=== PATIENT | female | born 1985 | race Caucasian/White ===

== ENCOUNTER 2018-09-13 23:00 | Inpatient (IN) | payer BC ==
[2018-09-14] MEDS ORDERED: ZOLPIDEM TARTRATE 5 MG TAB PO PRN (02:10)
[2018-09-14] MEDS ORDERED: TERBUTALINE SULFATE 1 MG/ML VIAL ONE (07:11)
[2018-09-14] MEDS ORDERED: LIDOCAINE 1% 300 MG/30 ML SDV ONE (07:11)
[2018-09-14] MEDS ORDERED: MISOPROSTOL 200 MCG TAB ONE (07:11)
[2018-09-14] MEDS ORDERED: OXYTOCIN 10 UNIT/ML VIAL ONE (07:11)
[2018-09-14] MEDS ORDERED: AMMONIA AROMATIC 1 EACH AMP IH ONE (07:11)
[2018-09-14] MEDS ORDERED: OLIVE OIL 118 ML BTL ONE (07:11)
[2018-09-14] MEDS ORDERED: EPSOM SALT 454 GM TP PRN (07:14)
[2018-09-14] MEDS ORDERED: IBUPROFEN 600 MG TAB PO PRN (07:14)
[2018-09-14] MEDS ORDERED: TERBUTALINE SULFATE 1 MG/ML VIAL IV PRN (07:14)
[2018-09-14] MEDS ORDERED: OXYTOCIN/RINGERS LACTATE 1,000 ML IV PRN (07:14)
[2018-09-14] MEDS ORDERED: MISOPROSTOL 200 MCG TAB PR PRN (07:14)
[2018-09-14] MEDS ORDERED: LR 1,000 ML IV PRN (07:14)
[2018-09-14] MEDS ORDERED: LIDOCAINE 1% 300 MG/30 ML SDV SC PRN (07:14)
[2018-09-14] MEDS ORDERED: OLIVE OIL 118 ML BTL MISC PRN (07:14)
[2018-09-14] MEDS ORDERED: OXYTOCIN/RINGERS LACTATE 30 UNIT/500 ML BAG IV ONE (09:01)
[2018-09-14 09:29] LABS: PLATELET COUNT 197 10^3/uL (150-400)
--- NOTE | 2018-09-14 09:42 | PDGENHP ---
History and Physical - Chief Complaint contractions - History of Present Illness 33 at 40w1d today, came in last night with contractions, no cervical change. Was given Ambien per Dr. Arthur, and per RN report - slept intermittently and did not call I assumed care at 0700 and was called at 0710 and told the patient was 9.5 cm dilated. I arrived on the floor by 0730, pt had SROM with clear fluid at 0731, and I found the patient to be completely dilated at 0748. Pushing commenced, and I was in the room with the patient until now, 0930. Straight cath for 150ml around 0845. care uncomplicated. labs: Innatal neg A pos Ab scr neg RPR NR Rub NON imm HBSG neg HIV neg std panel neg varicella imm 1 hr GTT 149, 3 hr 77/126/99/69 GBS neg History Information - Allergies/Home Medication List Allergies/Adverse Reactions: No Known Allergies Allergy (Verified 09/13/18 23:23) I have personally reviewed and updated: family history, medical history, social history, surgical history - Past Medical History no pertinent PMH - Surgical History Additional surgical history: tonsillectomy. wisdom teeth - Family History Additional family history: F - a fib. MGM - DM, thyroid dz, Crohn's disease. m , sis - depression. M - breast ca at 34 - Social History Smoking Status: Never smoked Alcohol Use: None Drug Use: None Review of Systems Review of Systems: ROS: 10pt was reviewed & negative except for what was stated in HPI & below Physical Exam Physical Exam: VSS afeb36.4 77 119/76 gen - pleasant, NAD CV -RRR abd - gravid, soft, NT when not cholo. ext - no edema, calves NT SVE - complete/ +2 when started pushing, descends to +3 with pushing after 1:45 of pushing FHR 150s, variable decels with pushing, mod variability in between toco - q 3-5 min Constitutional: no apparent distress Eyes: PERRL, EOMI Ears, Nose, Mouth, Throat: moist mucous membranes, hearing normal, ears appear normal Cardiovascular: regular rate and rhythym Genitourinary: no bladder fullness Skin: warm, normal color Musculoskeletal: full muscle strength Neurologic: AAOx3 Psychiatric: interacting appropriately Lab Data & Imaging Review 09/14/18 09:10 WBC 17.97 10^3/uL (3.80-9.50) H 09/14/18 09:10 RBC 4.55 10^6/uL (4.18-5.33) 09/14/18 09:10 Hgb 14.0 g/dL (12.6-16.3) 09/14/18 09:10 Hct 40.4 % (38.0-47.0) 09/14/18 09:10 MCV 88.8 fL (81.5-99.8) 09/14/18 09:10 MCH 30.8 pg (27.9-34.1) 09/14/18 09:10 MCHC 34.7 g/dL (32.4-36.7) 09/14/18 09:10 RDW 13.2 % (11.5-15.2) 09/14/18 09:10 Plt Count 197 10^3/uL (150-400) 09/14/18 09:10 MPV 12.7 fL (8.7-11.7) H 09/14/18 09:10 Neut % (Auto) 90.3 % (39.3-74.2) H 09/14/18 09:10 Lymph % (Auto) 5.3 % (15.0-45.0) L 09/14/18 09:10 Rice % (Auto) 3.9 % (4.5-13.0) L 09/14/18 09:10 Eos % (Auto) 0.0 % (0.6-7.6) L 09/14/18 09:10 Baso % (Auto) 0.2 % (0.3-1.7) L 09/14/18 09:10 Nucleat RBC Rel Count 0.0 % (0.0-0.2) 09/14/18 09:10 Absolute Neuts (auto) 16.22 10^3/uL (1.70-6.50) H 09/14/18 09:10 Absolute Lymphs (auto) 0.96 10^3/uL (1.00-3.00) L 09/14/18 09:10 Absolute Monos (auto) 0.70 10^3/uL (0.30-0.80) 09/14/18 09:10 Absolute Eos (auto) 0.00 10^3/uL (0.03-0.40) L 09/14/18 09:10 Absolute Basos (auto) 0.03 10^3/uL (0.02-0.10) 09/14/18 09:10 Absolute Nucleated RBC 0.00 10^3/uL (0-0.01) 09/14/18 09:10 Immature Gran % 0.3 % (0.0-1.1) 09/14/18 09:10 Immature Gran # 0.06 10^3/uL (0.00-0.10) 09/14/18 09:10 Assessment & Plan Assessment: A/P: 31 at 40w1d in second stage of labor now. Has been pushing for 1:45. Just started pitocin to optimize contraction pattern, and will change positions. No epidural. Concern for shoulder dystocia verbalized to nursing staff, will have an additional RN present at time of delivery. Deidre Trujillo MD, FACOG [facility]
--- NOTE | 2018-09-14 11:43 | OBDEL ---
Info Type: Vaginal Presentation at Delivery: Vertex L&D Analgesia/Anesthesia Type: Local GBS+: No Intrapartum Medications: Generic Name Dose Route Start Last Admin Trade Name Freq PRN Reason Stop Dose Admin Zolpidem Tartrate 5 - 10 mg 09/14/18 02:10 09/14/18 02:16 Ambien PO 03/13/19 02:09 10 mg ONCE PRN Administration Sleep Indications for Delivery: Spontaneous Labor, SROM Vaginal Delivery - Delivery Provider Delivery Physician/CNM: Deidre Trujillo - Labor and Delivery Onset of Contractions Date: 09/13/18 Onset of Contractions Time: 19:30 Onset of Contractions Type: Spontaneous Rupture of Membranes Date: 09/14/18 Rupture of Membranes Time: 07:31 Rupture of Membranes Type: Spontaneous Amniotic Fluid Color: Clear Dilation Complete Date: 09/14/18 Dilation Complete Time: 07:48 Placenta Delivery Date: 09/14/18 Placenta Delivery Time: :19 Total Hours of Labor: 15 Non-surgical Procedures: Episiotomy (right mediolateral after 3 hours of pushing ) Episiotomy: Right Lateral Repair: 2-0 Vaginal Sponge Count Correct: Yes Vaginal Needle Count Correct: Yes Vaginal Sweep Performed: Yes EBL: 450 Delivery Events: None Delivery Comment: Pt presented in early labor, slept overnight intermittently, then was found to be 9.5 cm dilated, SROM occurred, and was found to be complete at 0748. She pushed for over 3 hours, and was becoming fatigued. A right mediolateral episiotomy was performed, followed by significant progress. occurred over the episiotomy, direct OA. Bulb suctioned on the perineum. No nuchal cord. Easy delivery of the body to the maternal abdomen. 1 in delay of cord clamping. Repair of episiotomy with 2.0 Vicryl in standard fashion. Delivery of placenta with trailing membranes, which were gently removed a number of times until no more were seen or palpated. Pt rocio procedure well. [id number]. IV pitocin given. Fundus firm and min bleeding. Pt and baby left stable in room with RN. - Medications Labor Augmentation/Induction Methods Used: Pitocin Labor Augmentation/Induction Indication: Inadequate Contraction Frequency M[place]onnell Data KORINA: 09/13/18 Gestational Age: 40 week(s) and 1 day(s) Shoulder Dystocia Time Head Delivered: 11:01 Time Body Delivered: 11:01 ICD10 Worksheet Patient Problems: Problems Problem Status Onset Primiparous in third trimester Acute Primiparous in third trimester Acute Spontaneous vaginal delivery Acute Spontaneous vaginal delivery Acute - ICD10 Problem Qualifiers (1) Primiparous in third trimester (2) Primiparous in third trimester (3) Spontaneous vaginal delivery (4) Spontaneous vaginal delivery
[2018-09-14] MEDS ORDERED: HYDROCORTISONE 0.5% CREAM TP PRN (12:04)
[2018-09-14] MEDS ORDERED: SIMETHICONE 80 MG TAB CHEW PO PRN (12:04)
[2018-09-14] MEDS ORDERED: OXYTOCIN/RINGERS LACTATE 500 ML IV SCH (12:30)
[2018-09-14] MEDS: ACETAMINOPHEN 325 MG TAB PO SCH ×2 (14:46→23:39)
[2018-09-14] MEDS: IBUPROFEN 600 MG TAB PO SCH (20:44)
[2018-09-14] MEDS: DOCUSATE SODIUM 100 MG CAP PO PRN (20:44)
[2018-09-15] MEDS: IBUPROFEN 600 MG TAB PO SCH ×5 (03:49→22:39)
[2018-09-15] MEDS: ACETAMINOPHEN 325 MG TAB PO SCH ×5 (10:33→22:40)
[2018-09-15] MEDS: DOCUSATE SODIUM 100 MG CAP PO PRN ×2 (10:33→22:39)
[2018-09-15] MEDS ORDERED: MEASLES,MUMPS&RUBELLA VACC/PF 0.5 ML VIAL SC ONE ×2 (13:11→18:00)
--- NOTE | 2018-09-15 13:19 | OBPP ---
Progress Note Assessment/Plan: Assessment: PPD 1 s/p anemia Plan: routine care, iron, will give MMR for rub NI 09/15/18 13:16 Subjective/ Course: 09/15/18 13:16 Pt doing fine. Hasn't slept much. bleeding has reduced. urinating fine. No BM yet. sore and using ice pack and ibu/tyl. baby is working on latching and also pumping and getting some colostrum. Objective: 09/15/18 04:00 Patient ABO/Rh A POSITIVE 09/14/18 09:10 Temp Pulse Resp BP Pulse Ox 36.9 C 103 H 17 119/79 98 09/14/18 19:58 09/14/18 19:58 09/14/18 19:58 09/14/18 19:58 09/14/18 19:58 Uterine Position/Fundal Height: Umbilicus -1 Uterine Tone: Firm Physical Exam - Physical Exam Abdomen: non-tender, soft, other (FF at umb -1, normal lochia) Extremities: non-tender, pedal edema (minimal) Skin: normal color, warm/dry Neuro/Psych: alert, normal mood/affect
[2018-09-15] MEDS: FERRO-SEQUELS 65 MG TAB.ER PO SCH (22:39)
[2018-09-16] MEDS: IBUPROFEN 600 MG TAB PO SCH ×4 (04:33→23:00)
[2018-09-16] MEDS: ACETAMINOPHEN 325 MG TAB PO SCH ×5 (04:33→23:01)
--- NOTE | 2018-09-16 09:09 | OBPROG ---
Labor Progress Note Assessment/Plan: Assessment: 33 yo PPD#2 s/p - doing great, ready to go home Plan: DC home, std pp instructions reviewed. See dc summary. Deidre Trujillo MD, FACOG [facility] 09/16/18 09:05 Objective: 09/15/18 04:00 Patient ABO/Rh A POSITIVE 09/14/18 09:10 Temp Pulse Resp BP Pulse Ox 37.2 C 100 16 117/80 98 09/15/18 20:42 09/15/18 20:42 09/15/18 20:42 09/15/18 20:42 09/15/18 20:42 gen - pleasant, NAD CV - RRR chest - CTAB abd - soft, + BS, fundus firm at u-2 ext - no calf tenderness, - SVE Amniotic Fluid Color: Clear Dilation Complete Date: 09/14/18 Dilation Complete Time: 07:48 - Procedures Non-surgical Procedures: Episiotomy (right mediolateral after 3 hours of pushing ) Oxytocin Orders Assessment - Pre-Induction/Augmentation Assessment Gestational Age: 40 week(s) and 0 day(s) ICD10 Worksheet Patient Problems: Problems Problem Status Onset Primiparous in third trimester Acute Primiparous in third trimester Acute Spontaneous vaginal delivery Acute Spontaneous vaginal delivery Acute - ICD10 Problem Qualifiers (1) Primiparous in third trimester (2) Primiparous in third trimester (3) Spontaneous vaginal delivery (4) Spontaneous vaginal delivery
--- NOTE | 2018-09-16 11:00 | OBPP ---
Progress Note Assessment/Plan: Assessment:33 PPD #2 s/p , doing well, , anemic, episiotomy intact. Plan: DC home, std pp instructions reviewed including ssx pp depression. To take iron and stool softener. See dc summary. Deidre Trujillo MD, FACOG [facility] 09/16/18 10:57 Subjective/ Course: 09/15/18 13:16 Pt doing fine. Hasn't slept much. bleeding has reduced. urinating fine. No BM yet. sore and using ice pack and ibu/tyl. baby is working on latching and also pumping and getting some colostrum. 09/16/18 10:58 Pt doing well. going well - has been working with . No BM yet. Voiding without difficulty. Pain well controlled with ibuprofen and tylenol. Mod lochia. Ready to go home. No personal hx of depression, though has family hx of depression. Objective: 09/15/18 04:00 Patient ABO/Rh A POSITIVE 09/14/18 09:10 Temp Pulse Resp BP Pulse Ox 36.2 C 86 15 127/82 H 99 09/16/18 09:21 09/16/18 09:21 09/16/18 09:21 09/16/18 09:21 09/16/18 09:21 gen - pleasant, NAD CV - RRR chest - CTAB abd - + BS, soft, NT, fundus firm at u-2 ext - 2+ pitting BLE, no calf tenderness perineum - episiotomy repair intact, min edema, suture line palpable with min tenderness Uterine Position/Fundal Height: Umbilicus -2 Uterine Tone: Firm
--- NOTE | 2018-09-16 11:07 | OBGCSDC ---
General Delivery Information - General Info : 2 Para: 1 Abortions: 1 Type: Vaginal L&D Analgesia/Anesthesia Type: None Admission Date: 09/14/18 Labs: Patient ABO/Rh A POSITIVE 09/14/18 09:10 Hct 27.5 % (38.0-47.0) L 09/15/18 04:00 - Hospital Course : 09/15/18 13:16 Pt doing fine. Hasn't slept much. bleeding has reduced. urinating fine. No BM yet. sore and using ice pack and ibu/tyl. baby is working on latching and also pumping and getting some colostrum. 09/16/18 10:58 Pt doing well. going well - has been working with . No BM yet. Voiding without difficulty. Pain well controlled with ibuprofen and tylenol. Mod lochia. Ready to go home. No personal hx of depression, though has family hx of depression. Vaginal - Delivery Provider Delivery Physician/CNM: Deidre Trujillo - Diagnosis Labor: Spontaneous Rupture of Membranes Type: Spontaneous Amniotic Fluid Color: Clear Episiotomy: Right Lateral Repair: 2-0 Delivery Events: None - Procedures Non-surgical Procedures: Episiotomy (right mediolateral after 3 hours of pushing ) - Delivery Non-surgical Procedures: Episiotomy (right mediolateral after 3 hours of pushing ) EBL: 450 Data KORINA: 09/13/18 Gestational Age: 40 week(s) and 3 day(s) Lorenzo Delivery Date: 09/14/18 Delivery Time: 11:01 Sex of Infant: Male Weight (gm): 3628.739 g Score (1 Min): 9 Score (5 Min): 9 Discharge Information - Discharge Information Instruction/Follow Up: See Instruction Sheet, Six Weeks
[2018-09-16] MEDS: FERRO-SEQUELS 65 MG TAB.ER PO SCH ×2 (11:11→19:46)
[2018-09-16] MEDS: DOCUSATE SODIUM 100 MG CAP PO PRN ×2 (11:11→19:45)
[2018-09-16] MEDS ORDERED: GENTAMICIN PHARMACY TO DOSE MISC SCH (17:45)
[2018-09-16] MEDS ORDERED: LR 1,000 ML IV ONE (18:00)
[2018-09-16 18:18] LABS: PLATELET COUNT 180 10^3/uL (150-400)
[2018-09-16] MEDS ORDERED: D5W IV SCH (19:00)
[2018-09-16] MEDS ORDERED: GENTAMICIN SULFATE IV SCH (19:00)
[2018-09-16] MEDS: CLINDAMYCIN 900 MG/DEXTROSE 50 ML IV SCH (19:47)
--- NOTE | 2018-09-16 20:00 | OBPP ---
Progress Note Assessment/Plan: Assessment:33 PPD #2 s/p , doing well, , anemic, episiotomy intact. Plan: DC home, std pp instructions reviewed including ssx pp depression. To take iron and stool softener. See dc summary. Deidre Trujillo MD, FACOG [facility] 09/16/18 10:57 09/16/18 21:14 CANCELLED DC A/P: 33 PPD#2 s/p , febrile - presumed pp endometritis as only focal symptom is left uterine tenderness. Gent and clinda started per [facility] recommendations. Will continue IV abx until afebrile x 24 hours. Deidre Trujillo MD, FACOG [facility] 09/16/18 21:35 Subjective/ Course: 09/15/18 13:16 Pt doing fine. Hasn't slept much. bleeding has reduced. urinating fine. No BM yet. sore and using ice pack and ibu/tyl. baby is working on latching and also pumping and getting some colostrum. 09/16/18 10:58 Pt doing well. going well - has been working with . No BM yet. Voiding without difficulty. Pain well controlled with ibuprofen and tylenol. Mod lochia. Ready to go home. No personal hx of depression, though has family hx of depression. 09/16/18 21:25 Was called by RN around 1700 - fever and pt having chills, and left uterine tenderness. UA, CBC, bld cxs were obtained, ibuprofen and Tylenol were given and gent and clinda were started and pt currently feels much better. Today during the day - had left uterine tenderness which progressively worsened. Lochia unchanged. No dysuria. no chest pain of dyspnea. No coughing or URI sx. NO back pain. No diarrhea, just had a normal BM this evening. Objective: 09/16/18 17:50 Patient ABO/Rh A POSITIVE 09/14/18 09:10 Temp Pulse Resp BP Pulse Ox 38.5 C H 128 H 16 121/76 H 98 09/16/18 16:46 09/16/18 16:46 09/16/18 11:06 09/16/18 16:46 09/16/18 16:46 Temp repeated and is now afebrile - has not been charted by RN. HR by my count is 90. gen - pleasant, NAD, pumping CV - RRR chest - CTAB, no crackles or rales abd - soft, + BS, fundus firm at u-2 with mild tenderness on left side. ext - calves NT, 2+ BLE pitting edema, no erythema Uterine Position/Fundal Height: Umbilicus -2 Uterine Tone: Firm (mild tenderness on left side.)
[2018-09-17] MEDS: CLINDAMYCIN 900 MG/DEXTROSE 50 ML IV SCH ×2 (04:12→16:56)
[2018-09-17] MEDS: IBUPROFEN 600 MG TAB PO SCH ×3 (04:13→16:35)
[2018-09-17] MEDS: ACETAMINOPHEN 325 MG TAB PO SCH ×3 (04:13→16:36)
[2018-09-17 08:08] LABS: PLATELET COUNT 168 10^3/uL (150-400)
[2018-09-17] MEDS ORDERED: ERTAPENEM 1 GM in NS 100 ML IV SCH (10:45)
--- NOTE | 2018-09-17 10:51 | OBPP ---
Progress Note Assessment/Plan: Assessment: 33 y/o PPD #3 s/p with PP endometritis. Plan: Pt is doing better on IV antibiotics, is now afebrile and WBC is improving. I spoke to ID today regarding antibiotic choice and I agree with Dr. Castaneda that Ertepenum is a better single drug choice with less potential for harmful side effects. Will D/c Gent and Clinda and give single choice Ertepenum. She will remain inpatient until at least 24 hours post . We will assess clinically at that time, and if she continues to do well, will d/c home on PO antibiotics to complete a 10 day course. 09/17/18 10:51 Subjective/ Course: 09/15/18 13:16 Pt doing fine. Hasn't slept much. bleeding has reduced. urinating fine. No BM yet. sore and using ice pack and ibu/tyl. baby is working on latching and also pumping and getting some colostrum. 09/16/18 10:58 Pt doing well. going well - has been working with . No BM yet. Voiding without difficulty. Pain well controlled with ibuprofen and tylenol. Mod lochia. Ready to go home. No personal hx of depression, though has family hx of depression. 09/16/18 21:25 Was called by RN around 1700 - fever and pt having chills, and left uterine tenderness. UA, CBC, bld cxs were obtained, ibuprofen and Tylenol were given and gent and clinda were started and pt currently feels much better. Today during the day - had left uterine tenderness which progressively worsened. Lochia unchanged. No dysuria. no chest pain of dyspnea. No coughing or URI sx. NO back pain. No diarrhea, just had a normal BM this evening. 09/17/18 10:41 Pt is doing much better this am. She denies F/C, and has much less uterine, abdominal pain today. She is ambulating and voiding and her only real pain is from her perineal sutures. Breast feeding is going well and her milk is coming in today. Baby is doing well. Objective: 09/17/18 07:55 Patient ABO/Rh A POSITIVE 09/14/18 09:10 Temp Pulse Resp BP Pulse Ox 37.1 C 97 16 123/82 H 96 09/17/18 08:15 09/17/18 08:15 09/17/18 08:15 09/17/18 08:15 09/17/18 08:15 Uterine Position/Fundal Height: Umbilicus -2 Uterine Tone: Firm (non-tender) Physical Exam - Physical Exam General Appearance: alert, no apparent distress Neck: non-tender, full range of motion, supple Respiratory: chest non-tender, lungs clear, normal breath sounds Cardiac/Chest: regular rate, rhythm Abdomen: normal bowel sounds Extremities: swelling (no), Bee's sign (neg)
[2018-09-17] MEDS: FERRO-SEQUELS 65 MG TAB.ER PO SCH (10:52)
[2018-09-17] MEDS: DOCUSATE SODIUM 100 MG CAP PO PRN (10:52)
[2018-09-17] MEDS ORDERED: EPSOM SALT 454 GM TP ONE (10:58)
[2018-09-17 16:30] VITALS: BP 117/81
[2018-09-17] MEDS ORDERED: AMOXICILLIN/CLAVULANATE POT 875/125 MG TAB PO SCH (21:00)
== END 2018-09-17 20:00 | disposition home or self-care (01) | DRG 807 ==
LOC: FLD 23:00 → OBSVTOIN 09-14 11:17 → FOB 09-14 15:00
PROVIDERS: ADMIT Obstetrics & Gynecology; ATTEND Hospitalist
PROC: 10E0XZZ Delivery of Products of Conception, External Approach (ICD-10-PCS; principal; 2018-09-14)
PROC: 0W8NXZZ Division of Female Perineum, External Approach (ICD-10-PCS; principal; 2018-09-14)
DX: O75.81 Maternal exhaustion complicating labor and delivery (principal); O86.12 Endometritis following delivery; Z3A.40 40 weeks gestation of pregnancy; Z37.0 Single live birth
CPT/HCPCS: G0463; J1335; J1580; J2590; J3105